=== PATIENT | male | born 1975 | race Caucasian/White ===

== ENCOUNTER → 2023-01-16 | Outpatient (RCR) | payer OTHER | LOC: WSOH | DX: M25.511 Pain in right shoulder (principal); Y99.0 Civilian activity done for income or pay ==

== ENCOUNTER 2023-01-30 14:30 | Outpatient (RCR) | payer OTHER | END 2023-02-16 | disposition home or self-care (01) | LOC: WSOH | DX: S46.011D Strain of muscle(s) and tendon(s) of the rotator cuff of right shoulder, subsequent encounter (principal); Y99.0 Civilian activity done for income or pay ==

== ENCOUNTER 2023-02-20 14:34 | Outpatient (RCR) | payer OTHER | END 2023-03-19 | LOC: WSOH | DX: S46.011D Strain of muscle(s) and tendon(s) of the rotator cuff of right shoulder, subsequent encounter (principal); M75.41 Impingement syndrome of right shoulder; Y99.0 Civilian activity done for income or pay ==